=== PATIENT | female | born 1990 | race Caucasian/White ===

== ENCOUNTER 2017-03-08 12:49 | Inpatient (IN) | payer OTHER ==
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
[2017-03-08 13:21] LABS: PLATELET COUNT 209 10^3/uL (150-400)
[2017-03-08] MEDS ORDERED: SUMAtriptan 50 MG TAB PO ONE (20:18)
[2017-03-09] MEDS ORDERED: MAGNESIUM HYDROXIDE 30 ML UDCUP PO PRN (00:15)
[2017-03-09] MEDS ORDERED: MAG HYDROX/AL HYDROX/SIMETH 30 ML UDCUP PO PRN (00:15)
[2017-03-09] MEDS ORDERED: IBUPROFEN 200 MG TAB PO PRN (00:18)
[2017-03-09] MEDS: MELATONIN 3 MG TAB PO PRN ×2 (00:44→20:35)
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
[2017-03-09] MEDS: LORazepam 0.5 MG TAB PO PRN ×2 (11:00→15:46)
[2017-03-09] MEDS: ESCITALOPRAM OXALATE 10 MG TAB PO SCH ×2 (11:50→15:48)
[2017-03-09] MEDS ORDERED: SUMAtriptan 50 MG TAB PO PRN (12:44)
[2017-03-09] MEDS ORDERED: guanFACINE HCL 1 MG TAB PO ONE (12:47)
[2017-03-09] MEDS ORDERED: ACETAMINOPHEN 325 MG TAB PO PRN (12:49)
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
[2017-03-09] MEDS: guanFACINE HCL 1 MG TAB PO SCH (17:14)
[2017-03-09] MEDS ORDERED: HYDROCODONE/APAP 5/325 TAB PO PRN (18:03)
[2017-03-10 06:32] VITALS: RESP 14; O2SAT 96
[2017-03-10] MEDS: guanFACINE HCL 1 MG TAB PO SCH ×2 (07:59→17:23)
--- NOTE | 2017-03-10 12:27 | SOAPPROG ---
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 Patient has h/o MDD, PTSD and Borderline Personality Disorder. Plan: 03/10/17 12:20 1. Patient states she still feels helpless, hopeless, low self-esteem mostly as a result of difficulties in interpersonal relationships and conflict with her family. She admits to chronic SI since adolescence, but says she has no plan or intent to act on these thoughts at the current time. 2. Patient wants to stay on current meds: Lexapro, Tenex, Xeljanz. MD did discuss other options to treat anxiety including Buspar, Propranolol, Gabapentin and Hydroxyzine. However, MD also discussed that SSRIs are first line treatment for anxiety, especially when it is related to depression. Since patient only started taking Lexapro on 02/14/17, there has not been sufficient time for SSRI to reach max efficacy. Suggested adding non-pharm interventions to maximize treatment before adding more meds. MD recommends DBT group and individual therapy. Patient was agreeable to this plan. She said her outpatient therapist has recommended group therapy before, but patient says, "it always interfered with my class schedule" so she didn't go. 3. Recommended safety plan and contract. Patient says she has made contracts with OP therapist, Ty, in past, and says she is able to contract for safety now and at time of discharge. 4. Myriam SOLARES, is going to reach out to patient's friend/roommate, and make sure there are no guns in home. Recommend as part of patient's safety contract, that she agrees to have roommates lock up pills and limit access to lethal weapons. Subjective: Met with patient, reviewed chart and d/w staff. Patient was much calmer, more reasonable and less labile today. She was seated at table, met with patient along with Myriam SOLARES. Patient had written down a long list of questions/ concerns in a composition book. MD spent almost an hour going through each of the patient's concerns and answered all her questions. Patient was very grateful , and thanked and BECK at end of meeting. She was focused on "when can I get discharged." She wanted to know if "I contract for safety and agree not to kill myself" would she be discharged on Saturday. MD stated patient would definitely need to complete a safety plan and agree to allow roommates to remove/lock up lethal means at home and agree to contact her outpatient providers before acting on any suicidal thoughts. She agreed to this plan. She said that she has "always had" suicidal thoughts since she was a teenager, but has never acted on them. She insists that her cutting is "not to kill myself" and says she only harms herself to "relieve pain" and as a "way of coping." MD stressed importance of therapy specifically targeted at self-harm thoughts and to increase patient's ability to self-regulate and manage her emotions. MD spent a lot of time discussing DBT and answering patient's questions about therapy treatment for Borderline Personality Disorder. Patient has been working on DBT packet of worksheets while on unit. Objective: Vital Signs Temp Pulse Resp BP Pulse Ox 36.5 C 83 14 112/64 96 03/10/17 06:00 03/10/17 06:00 03/10/17 06:00 03/10/17 07:59 03/10/17 06:00 MSE: Affect: Euthymic Mood: "Sad" TP: Linear, goal-directed TC: Admits to SI , but denies any plan or intent to hurt herself and denies HI, no AH/VH Insight /Judgment: Poor - Time Spent With Patient Time Spent With Patient: 60 min - Pending Discharge Pending Discharge Within 24 Hours: No Pending Discharge Within 48 Hours: No ICD10 Worksheet Patient Problems: Problems Problem Status Onset History of posttraumatic stress disorder (PTSD) Acute Severe major depression Acute Suicidal ideation Acute
[2017-03-10] MEDS: LORazepam 0.5 MG TAB PO PRN ×2 (16:26→20:42)
[2017-03-10] MEDS ORDERED: ESCITALOPRAM OXALATE 10 MG TAB PO SCH (18:00)
[2017-03-10] MEDS: MELATONIN 3 MG TAB PO PRN (20:42)
[2017-03-11] MEDS: guanFACINE HCL 1 MG TAB PO SCH ×2 (08:33→17:47)
[2017-03-11] MEDS: LORazepam 0.5 MG TAB PO PRN (09:54)
[2017-03-11] MEDS ORDERED: hydrOXYzine HCL 25 MG TAB PO PRN (10:55)
[2017-03-11] MEDS ORDERED: ESCITALOPRAM OXALATE 10 MG TAB PO SCH (10:56)
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
[2017-03-11] MEDS ORDERED: ARIPiprazole 2 MG TAB PO PRN (11:12)
[2017-03-11] MEDS: lamoTRIgine 25 MG TAB PO SCH (12:03)
[2017-03-12 06:37] VITALS: BP 106/50; PULSE 83; TEMP 97.9
[2017-03-12] MEDS: lamoTRIgine 25 MG TAB PO SCH (09:20)
[2017-03-12] MEDS: guanFACINE HCL 1 MG TAB PO SCH (09:20)
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
== END 2017-03-12 13:05 | disposition home or self-care (01) | DRG 881 ==
LOC: BBEH 23:57
PROVIDERS: ADMIT Psychiatry & Neurology Psychiatry; ATTEND Psychiatry & Neurology Psychiatry
DX: F32.9 Major depressive disorder, single episode, unspecified (principal); F34.0 Cyclothymic disorder; F43.10 Post-traumatic stress disorder, unspecified
CPT/HCPCS: 80305; G0480

== ENCOUNTER 2018-07-25 14:05 | Inpatient (IN) | payer OTHER, MEDICAID | END 2018-07-29 17:32 | disposition home or self-care (01) | LOC: BBEH 22:50 ==